=== PATIENT | male | born 1945 | race Caucasian/White ===

== ENCOUNTER 2016-12-09 16:59 | Outpatient (CLI) | payer OTHER ==
--- NOTE | 2016-12-09 19:05 | DIAGNOSTIC IMAGING REPORT ---
PROCEDURE: XR HIP BILATERAL INDICATION: Bilateral hip pain. TECHNIQUE: AP view of the pelvis and hips with lateral views of the bilateral hips. COMPARISON: None. FINDINGS: RIGHT HIP: Moderate to severe arthritic changes of the right hip joint with joint space narrowing. No evidence of acute process. LEFT HIP: There are moderate degenerate change of the left hip joint. No evidence of acute process. PELVIS: Osseous pelvis is normal. There are moderate degenerative changes of the lower lumbar spine. IMPRESSION: 1. Moderate to severe osteoarthritic change of the right hip. 2. Moderate osteoarthritic changes of the left hip joint. 3. Moderate degenerative changes of the lumbar spine. 4. Negative pelvis.
== END 2016-12-09 23:00 ==
LOC: XR SRH 16:59
DX: M16.0 Bilateral primary osteoarthritis of hip (principal); M51.36 Other intervertebral disc degeneration, lumbar region